=== PATIENT | male | born 1960 | race Two or more races ===

== ENCOUNTER 2021-02-23 14:05 | Outpatient (CLI) | payer OTHER | END 2021-02-23 14:12 | disposition home or self-care (01) | LOC: RAD 14:05 | PROVIDERS: ATTEND Orthopaedic Surgery | DX: M25.571 Pain in right ankle and joints of right foot (principal); S82.54XA Nondisplaced fracture of medial malleolus of right tibia, initial encounter for closed fracture ==

== ENCOUNTER 2021-02-28 09:26 | Outpatient (CLI) | payer OTHER | END 2021-02-28 09:37 | disposition home or self-care (01) | LOC: RAD 09:26 | PROVIDERS: ATTEND Orthopaedic Surgery | DX: S82.54XA Nondisplaced fracture of medial malleolus of right tibia, initial encounter for closed fracture (principal) ==